=== PATIENT | female | born 1950 | race Caucasian/White ===

== ENCOUNTER → 2017-01-10 | Outpatient (CLI) | payer OTHER ==
[~2017-01-10] VITALS: Ht 152.4 cm; Wt 60.3 kg
[~2017-01-10] MED LIST: ICAPCAP PO; LEVO25TA5 PO; LR 1,000 ML IV SCH; PROPOFOL 200 MG/20 ML VIAL As Ordered ONE
--- NOTE | 2017-01-10 08:03 | ROOR ---
Patient Name: Radha Ospina Procedure Date: 01/10/2017 7:40 AM Date of : 1950 Age: 66 Room: [facility] Gender: Female Note Status: Finalized Procedure: Colonoscopy Indications: High risk colon cancer surveillance: Personal history of colonic polyps, Last colonoscopy: 2010 Providers: Darian Frias MD Referring MD: YOHANNES GUZMÁN JR, MD Requesting Provider: Medicines: Monitored Anesthesia Care Complications: No immediate complications. Procedure: Pre-Anesthesia Assessment: - Prior to the procedure, a History and Physical was performed, and patient medications and allergies were reviewed. The patient is competent. The risks and benefits of the procedure and the sedation options and risks were discussed with the patient. All questions were answered and informed consent was obtained. Patient identification and proposed procedure were verified by the physician, the nurse and the anesthesiologist in the procedure room. Mental Status Examination: alert and oriented. Airway Examination: normal oropharyngeal airway and neck mobility. CV Examination: regular rate and rhythm. Prophylactic Antibiotics: The patient does not require prophylactic antibiotics. Prior Anticoagulants: The patient has taken no previous anticoagulant or antiplatelet agents. ASA Grade Assessment: II - A patient with mild systemic disease. After reviewing the risks and benefits, the patient was deemed in satisfactory condition to undergo the procedure. The anesthesia plan was to use monitored anesthesia care (MAC). Immediately prior to administration of medications, the patient was re-assessed for adequacy to receive sedatives. The heart rate, respiratory rate, oxygen saturations, blood pressure, adequacy of pulmonary ventilation, and response to care were monitored throughout the procedure. The physical status of the patient was re-assessed after the procedure. The was introduced through the anus and advanced to the cecum, identified by appendiceal orifice and ileocecal valve. The colonoscopy was performed without difficulty. The patient tolerated the procedure well. The quality of the bowel preparation was excellent. Findings: The perianal and digital rectal examinations were normal. Multiple medium-mouthed diverticula were found in the entire colon. Impression: - Diverticulosis in the entire examined colon. - No specimens collected. Recommendation: - Discharge patient to home. - Resume previous diet. - Continue present medications. - Repeat colonoscopy in 5 years for surveillance. Darian Frias MD 01/10/2017 8:03:23 AM Number of Addenda: 0 Note Initiated On: 01/10/2017 7:40 AM Estimated Blood Loss: Estimated blood loss: none.
[2017-01-10 08:30] VITALS: BP 106/52
== END | disposition home or self-care (01) ==
LOC: M OPP 07:12
PROVIDERS: ATTEND Surgery
DX: Z12.11 Encounter for screening for malignant neoplasm of colon (principal); K57.30 Diverticulosis of large intestine without perforation or abscess without bleeding; Z86.010 Personal history of colon polyps; E03.9 Hypothyroidism, unspecified; E78.5 Hyperlipidemia, unspecified; M19.90 Unspecified osteoarthritis, unspecified site; Z78.0 Asymptomatic menopausal state; Z87.891 Personal history of nicotine dependence; Z79.899 Other long term (current) drug therapy

== ENCOUNTER → 2018-05-11 | Outpatient (REF) | payer MEDICARE, OTHER | LOC: M SFHCLERA 18:18 | DX: R30.0 Dysuria (principal) | CPT/HCPCS: 87086 ==

== ENCOUNTER → 2018-05-21 | Outpatient (REF) | payer MEDICARE, OTHER | LOC: M LAB REF 14:22 | DX: R31.9 Hematuria, unspecified (principal) | CPT/HCPCS: 87086 ==

== ENCOUNTER → 2018-10-16 | Outpatient (REF) | payer MEDICARE, OTHER ==
[~2018-10-16] MED LIST changes: -LR 1,000 ML IV SCH; -PROPOFOL 200 MG/20 ML VIAL As Ordered ONE
== END ==
LOC: M LAB REF 12:36
PROVIDERS: ATTEND Nurse Practitioner Family
DX: R53.83 Other fatigue (principal)

== ENCOUNTER → 2019-09-24 | Outpatient (CLI) | payer MEDICARE, OTHER ==
--- NOTE | 2019-09-26 16:30 | SLEEPCENT ---
DATE OF PROCEDURE: 09/24/2019 ORDERED BY: Dr. Naqvi Nocturnal polysomnography was performed for evaluation of sleep physiology in this patient with a history of excessive somnolence and nonrestorative sleep. 7 hours and 18 minutes of data were reviewed. There were 318 minutes of sleep identified. Sleep latency was normal at 13 minutes. REM sleep was delayed at 163-minute sleep architecture was fair with two REM cycles noted. Overall sleep efficiency was 74.3%. The electrocardiogram showed sinus rhythm with an average heart rate of 66 beats per minute. EEG showed normal waveforms for awake and sleep. There were 76 respiratory events identified of 10 seconds in duration or greater for an apnea-hypopnea index of 14.3 events were obstructive not exclusive to sleep stage nor body posture. Arousals from respiratory events occurred 6.3 times per hour and oxygen desaturations were seen into the low 80s. There was minimal limb activity and remaining measures of sleep physiology were normal. IMPRESSION: Obstructive sleep apnea syndrome (G47.33). Apnea-hypopnea index 14.3. RECOMMENDATIONS: The patient should be encouraged to return to sleep disorder center for pressure therapy. In the interim alcohol and sedative avoidance should be practiced and caution exercised during operation of motor vehicles
== END ==
LOC: M SLEEP 19:23
PROVIDERS: ATTEND Internal Medicine Pulmonary Disease
DX: G47.30 Sleep apnea, unspecified (principal)

== ENCOUNTER → 2019-11-03 | Outpatient (CLI) | payer MEDICARE, OTHER ==
--- NOTE | 2019-11-05 20:46 | SLEEPCENT ---
DATE OF PROCEDURE: 11/03/2019 ORDERED BY: Dr. Tonya Naqvi Nocturnal polysomnography was performed for the titration of pressure therapy in this patient with obstructive sleep apnea syndrome, apnea-hypopnea index 14.3. For testing a ResMed AirFit N20 nasal mask of small size was used, 4 cm of water pressure were applied to the circuit and the lights were extinguished. 7 hours and 59 minutes of data were reviewed. There were 360 minutes of sleep identified. Sleep latency was short at 4 minutes. Rapid eye movement (REM) latency was short at 54 minutes. Sleep architecture was good with three REM cycles. There were periods of wake resulting in reduced sleep efficiency of 76.7%. The electrocardiogram showed a sinus rhythm with an average heart rate of 65 beats per minute. EEG showed normal waveforms for awake and sleep and some artifact. Respiratory events were fully palliated with continuous positive airway pressure (CPAP) at a pressure of +5 and remaining measures of sleep physiology were normal. IMPRESSION: Obstructive sleep apnea syndrome (G47.33). RECOMMENDATIONS: Nightly use of pressure therapy 5 cm of water.
== END ==
LOC: M SLEEP 20:00
PROVIDERS: ATTEND Internal Medicine Pulmonary Disease
DX: G47.33 Obstructive sleep apnea (adult) (pediatric) (principal)

== ENCOUNTER → 2020-03-11 | Outpatient (CLI) | payer MEDICARE, OTHER | LOC: M LABSMTC 11:05 | PROVIDERS: ATTEND Family Medicine | DX: Z11.59 Encounter for screening for other viral diseases (principal) | CPT/HCPCS: C9803; U0003 ==

== ENCOUNTER → 2020-07-28 | Outpatient (CLI) | payer SELFPAY | LOC: M LABSMTC 09:47 | PROVIDERS: ATTEND Pediatrics | DX: Z20.828 Contact with and (suspected) exposure to other viral communicable diseases (principal) ==

== ENCOUNTER → 2022-05-19 | Outpatient (CLI) | payer MEDICARE, OTHER ==
[~2022-05-19] MED LIST changes: +CALC600T60 PO; +VITC1TAB PO
== END ==
LOC: M LABSMTC 09:34
PROVIDERS: ATTEND Anesthesiology
DX: Z01.818 Encounter for other preprocedural examination (principal); Z11.52 Encounter for screening for COVID-19

== ENCOUNTER 2022-05-24 10:09 | Day surgery (SDC) | payer MEDICARE, OTHER ==
[~2022-05-24] VITALS: Ht 152.4 cm; Wt 74.8 kg
[~2022-05-24 10:09] MED LIST changes: +LIDOCAINE 2% 100MG/5ML SDV (FOR ANES.) As Ordered ONE; +NS 1,000 ML IV ONE; +propofoL 200 MG/20 ML VIAL As Ordered ONE
[2022-05-24 12:42] VITALS: BP 110/53
== END 2022-05-24 12:43 | disposition home or self-care (01) ==
LOC: M OPP 10:09
PROVIDERS: ATTEND Surgery
DX: Z86.010 Personal history of colon polyps (principal); K57.30 Diverticulosis of large intestine without perforation or abscess without bleeding; Z87.891 Personal history of nicotine dependence; Z79.899 Other long term (current) drug therapy; G47.30 Sleep apnea, unspecified; Z99.89 Dependence on other enabling machines and devices; E03.9 Hypothyroidism, unspecified

== ENCOUNTER → 2022-06-11 | Outpatient (REF) | payer MEDICARE, OTHER ==
[~2022-06-11] MED LIST changes: -LIDOCAINE 2% 100MG/5ML SDV (FOR ANES.) As Ordered ONE; -NS 1,000 ML IV ONE; -propofoL 200 MG/20 ML VIAL As Ordered ONE
== END ==
LOC: M LAB REF 17:14
PROVIDERS: ATTEND Physician Assistant Medical
DX: R50.9 Fever, unspecified (principal)

== ENCOUNTER → 2022-11-07 | Outpatient (CLI) | payer MEDICARE, OTHER | LOC: M WUC 15:35 | PROVIDERS: ATTEND Internal Medicine | DX: M25.562 Pain in left knee (principal) ==

== ENCOUNTER → 2023-04-03 | Outpatient (CLI) | payer MEDICARE, OTHER ==
[~2023-04-03] MED LIST changes: +LETR2.5T2; +LETR2.5T2 PO; +NOXI1TAB PO; +NYST100085 TOP
== END ==
LOC: M WHC 10:15
PROVIDERS: ATTEND Specialist
DX: M85.89 Other specified disorders of bone density and structure, multiple sites (principal); C50.919 Malignant neoplasm of unspecified site of unspecified female breast; Z79.811 Long term (current) use of aromatase inhibitors

== ENCOUNTER → 2023-07-03 | Outpatient (REF) | payer MEDICARE, OTHER ==
[2023-07-03 23:08] LABS: APPEARANCE, URINE HAZY (CLEAR); BACTERIA, URINE AUTO 1+ (NEGATIVE); BILIRUBIN, URINE AUTO NEGATIVE (NEGATIVE); BLOOD, URINE BLOOD 2+ (NEGATIVE); COLOR, URINE YELLOW (YELLOW); GLUCOSE, URINE (UA) AUTO NEGATIVE (NEGATIVE); KETONE, URINE AUTO TRACE mg/dL (NEGATIVE); LEUKOCYTE ESTERASE, URINE AUTO 2+ (NEGATIVE); MUCUS, URINE SMALL (NEGATIVE); NITRITE, URINE AUTO NEGATIVE (NEGATIVE); PROTEIN, URINE AUTO NEGATIVE (NEGATIVE); RBC, URINE AUTO 10 /HPF (0-3); SPECIFIC GRAVITY URINE AUTO 1.026 (1.002-1.035); SQUAMOUS EPITHELIAL CELL UR AU 1 /HPF (0-6); UROBILINOGEN, URINE AUTO 0.2 mg/dL (0.0-2.0); WBC, URINE AUTO 59 /HPF (0-3)
== END ==
LOC: M LAB REF 22:15
PROVIDERS: ATTEND Physician Assistant
DX: N39.0 Urinary tract infection, site not specified (principal)

== ENCOUNTER → 2023-10-27 | Outpatient (REF) | payer MEDICARE, OTHER | LOC: M LAB REF 12:24 | PROVIDERS: ATTEND Nurse Practitioner Family | DX: N39.0 Urinary tract infection, site not specified (principal) ==

== ENCOUNTER → 2024-07-05 | Outpatient (CLI) | payer MEDICARE, OTHER | LOC: M PLAIMG 12:48 | PROVIDERS: ATTEND Internal Medicine | DX: M54.2 Cervicalgia (principal); M54.89 Other dorsalgia ==

== ENCOUNTER → 2024-07-30 | Outpatient (CLI) | payer MEDICARE, OTHER ==
[~2024-07-30] MED LIST changes: +ISOVUE-370 76% 100ML VIAL ONE
== END ==
LOC: M PLAIMG 14:08
PROVIDERS: ATTEND Internal Medicine Hematology & Oncology
DX: C50.919 Malignant neoplasm of unspecified site of unspecified female breast (principal)
CPT/HCPCS: 73201; Q9967

== ENCOUNTER → 2025-08-24 | Outpatient (REF) | payer MEDICARE, OTHER ==
[~2025-08-24] MED LIST changes: +BENA25CA4 PO; +CLAR10CA3 PO; +EXEM25TA PO; +FLON1SPR NARES; +GLUC500C37 PO; -ISOVUE-370 76% 100ML VIAL ONE; +PRED20TA; +PRED20TA PO; +PRES10CA2 PO
[2025-08-25 11:20] LABS: APPEARANCE, URINE MANUAL CLEAR (CLEAR); BILIRUBIN, URINE MANUAL NEGATIVE (NEGATIVE); BLOOD URINE MANUAL TRACE (NEGATIVE); COLOR, URINE MANUAL YELLOW (YELLOW); GLUCOSE, URINE (UA) MANUAL NEGATIVE (NEGATIVE); KETONE, URINE MANUAL NEGATIVE (NEGATIVE); LEUKOCYTE ESTERASE, URINE MAN TRACE (NEGATIVE); NITRITE, URINE MANUAL NEGATIVE (NEGATIVE); PH,URINE MAN 5.0 UNITS (5.0 - 7.0); PROTEIN, URINE MANUAL NEGATIVE (NEGATIVE); SPECIFIC GRAVITY,URINE MANUAL 1.015 (1.002-1.035); UROBILINOGEN, URINE MANUAL NORMAL (NORMAL)
[2025-08-25 11:21] LABS: RBC, URINE 0-3 /hpf (0-3); SQUAMOUS EPITHELIAL CELL URINE SMALL /hpf (SMALL AMT)
[2025-08-25 11:22] LABS: BACTERIA, URINE SMALL; HYALINE CAST, URINE NONE SEEN /lpf (0-1)
== END ==
LOC: M LAB REF 18:36
DX: N39.0 Urinary tract infection, site not specified (principal)